=== PATIENT | male | born 1955 | race Caucasian/White ===

== ENCOUNTER 2017-03-05 19:19 | Emergency (ER) | payer OTHER ==
--- NOTE | 2017-03-05 21:39 | UC ---
UC General HPI - HPI Summary HPI Summary: patient is having intermittant stabbing pain behind the right ear. it is not occuring at this time. has been going on for a few weeks. Hx of tinnitus and vertigo, which does nota seem to be happening at this time. - History of Current Complaint Chief Complaint: UCSkin Stated Complaint: PAIN BEHIND R EAR Time Seen by Provider: 03/05/17 21:18 Hx Obtained From: Patient Onset/Duration: Sudden Onset, Lasting Days Timing: Intermittent Episodes Lasting: - seconds Onset Severity: Moderate Current Severity: Moderate - Allergy/Home Medications Allergies/Adverse Reactions: Allergies Allergy/AdvReac Type Severity Reaction Status Date / Time Penicillins Allergy Rash Verified 01/24/16 06:14 PMH/Surg Hx/FS Hx/Imm Hx Previously Healthy: Yes Cardiovascular History Of: Reports: Hypertension Psychological History Of: Reports: Depression - CONTROL WITH MEDS - Surgical History Surgical History: Yes Surgery Procedure, Year, and Place: 1977 REPAIR LACERATION RIGHT FOREARM, [facility]. 1996 BONE MARROW ASPIRATION, [facility]01/17 hip replacement - Family History Known Family History: Positive: Hypertension - Social History Alcohol Use: None Substance Use Type: None Smoking Status (MU): Former Smoker Type: Cigarettes Amount Used/How Often: 1 PPD FOR 17 YEARS Length of Time of Smoking/Using Tobacco: 17 YEARS Have You Smoked in the Last Year: No When Did the Patient Quit Smoking/Using Tobacco: 1987 - Immunization History Most Recent Influenza Vaccination: 2014 Most Recent Tetanus Shot: WITHIN 10 YEARS Most Recent Pneumonia Vaccination: NONE Review of Systems Constitutional: Negative Skin: Negative Eyes: Negative ENT: Negative Respiratory: Negative Cardiovascular: Negative Gastrointestinal: Negative Genitourinary: Negative Motor: Negative Neurovascular: Other - stabbing pain behind right ear Musculoskeletal: Negative Neurological: Negative Psychological: Negative All Other Systems Reviewed And Are Negative: Yes Physical Exam Triage Information Reviewed: Yes Appearance: Well-Appearing, Well-Nourished, Pain Distress Vital Signs: Initial Vital Signs Temp 98.0 F 03/05/17 20:49 Pulse 62 03/05/17 20:49 Resp 18 03/05/17 20:49 Pulse Ox 99 03/05/17 20:49 Vital Signs Reviewed: Yes Eye Exam: Normal Eyes: Positive: Conjunctiva Clear ENT Exam: Normal ENT: Positive: Hearing grossly normal, Pharynx normal, TMs normal Dental Exam: Normal Neck exam: Normal Neck: Positive: Supple, Nontender, No Lymphadenopathy Respiratory Exam: Normal Respiratory: Positive: Chest non-tender, Lungs clear, Normal breath sounds Cardiovascular Exam: Normal Cardiovascular: Positive: RRR, No Murmur, Pulses Normal Abdominal Exam: Normal Abdomen Description: Positive: Nontender, No Organomegaly, Soft Bowel Sounds: Positive: Present Musculoskeletal Exam: Normal Musculoskeletal: Positive: Strength Intact, ROM Intact, No Edema Neurological Exam: Normal Neurological: Positive: Other: - intermittant stabbing pain behind the right ear. happens for a second cannot reproduce the pain with movment or palpation. Psychological Exam: Normal Skin Exam: Normal Course/Dx - Course Course Of Treatment: hx obtained, exam performed, meds reviewed. patient refusing medication at this time. recommend heat to the area in case of tight muscles. Follow up with PCP. - Differential Dx - Multi-Symptom Provider Diagnoses: nerve pain Discharge - Discharge Plan Condition: Stable Disposition: HOME Patient Education Materials: Acoustic Neuroma (ED), Paresthesia (ED) Additional Instructions: I recommend you follow up with your physician if the pain continues.
== END 2017-03-05 21:46 | disposition home or self-care (01) ==
LOC: UCEAST 19:19
DX: H92.01 Otalgia, right ear (principal); I10 Essential (primary) hypertension; F32.9 Major depressive disorder, single episode, unspecified; Z96.649 Presence of unspecified artificial hip joint; Z88.0 Allergy status to penicillin; Z87.891 Personal history of nicotine dependence
CPT/HCPCS: 99211; G0463

== ENCOUNTER 2018-02-08 08:43 | Emergency (ER) | payer BC ==
--- NOTE | 2018-02-08 10:16 | UC ---
FLU HPI - HPI Summary HPI Summary: Patient to urgent care today with 4 days of fever and shortness of breath reports feeling like he did when he had pneumonia in the past with harsh cough - History of Current Complaint Chief Complaint: UCRespiratory Stated Complaint: FEVER Time Seen by Provider: 02/08/18 10:03 Hx Obtained From: Patient Hx From Patient Unobtainable Due To: Dementia Onset/Duration: Sudden Onset, Lasting Days - 4, Still Present Severity Currently: Moderate Severity Initially: Mild Pain Intensity: 6 Pain Scale Used: 0-10 Numeric Associated Signs & Symptoms: Positive: Fever, Myalgia, Cough - Allergy/Home Medications Allergies/Adverse Reactions: Allergies Allergy/AdvReac Type Severity Reaction Status Date / Time MS Penicillins [Penicillins] Allergy Intermediate Rash Verified 02/08/18 10:09 PMH/Surg Hx/FS Hx/Imm Hx Previously Healthy: No Endocrine History: Dyslipidemia Cardiovascular History: Hypertension Psychological History: Depression - Surgical History Surgical History: Yes Surgery Procedure, Year, and Place: 1977 REPAIR LACERATION RIGHT FOREARM, [facility]. 1996 BONE MARROW ASPIRATION, [facility]01/17 hip replacement - Family History Known Family History: Positive: Hypertension - Social History Occupation: Employed Part-time Lives: With Family Alcohol Use: None Substance Use Type: None Smoking Status (MU): Former Smoker Type: Cigarettes Amount Used/How Often: 1 PPD FOR 17 YEARS Length of Time of Smoking/Using Tobacco: 17 YEARS Have You Smoked in the Last Year: No When Did the Patient Quit Smoking/Using Tobacco: 1987 - Immunization History Most Recent Influenza Vaccination: 2014 Most Recent Tetanus Shot: WITHIN 10 YEARS Most Recent Pneumonia Vaccination: NONE Review of Systems Constitutional: Fever, Chills, Fatigue Skin: Negative Eyes: Negative ENT: Negative Respiratory: Shortness Of Breath, Cough Cardiovascular: Negative Gastrointestinal: Negative Genitourinary: Negative Motor: Negative Neurovascular: Negative Musculoskeletal: Arthralgia Neurological: Negative Psychological: Negative Is Patient Immunocompromised?: No All Other Systems Reviewed And Are Negative: Yes Physical Exam Triage Information Reviewed: Yes Appearance: No Pain Distress, Well-Nourished - Just should be personally with him and The follow, Ill-Appearing Vital Signs Reviewed: Yes Eye Exam: Normal Eyes: Positive: Conjunctiva Clear ENT Exam: Normal ENT: Positive: Normal ENT inspection, Hearing grossly normal, Pharynx normal, TMs normal - RL, Uvula midline. Negative: Tonsillar swelling, Trismus, Muffled voice, Hoarse voice, Dental tenderness, Sinus tenderness Dental Exam: Normal Neck exam: Normal Neck: Positive: Supple, Nontender Respiratory Exam: Normal Respiratory: Positive: Chest non-tender, No accessory muscle use, Respiratory distress - mild, Crackles, Wheezing Cardiovascular Exam: Normal Cardiovascular: Positive: RRR, No Murmur, Pulses Normal, Brisk Capillary Refill Musculoskeletal Exam: Normal Musculoskeletal: Positive: Strength Intact, ROM Intact, No Edema Neurological Exam: Normal Neurological: Positive: Alert, Muscle Tone Normal Psychological Exam: Normal Skin Exam: Normal Diagnostics - Radiology No standard instances Xray Interpretation: Positive (See Comments) - RLL Pneumonia Radiology Interpretation Completed By: ED Physician, Radiologist Re-Evaluation - Re-Evaluation First Eval Change: Unchanged - Sat 91 % at rest 88-89 % with conversation, lungs feel less congested with Albuterol, Second Eval Change: Improved - with Oxygen 95-96% on 3Liters@- Flu Course/Dx - Course Course Of Treatment: Transferred to the emergency department by ambulance O2 3 L nasal K no acute sets above 9394% IV report given to Dr. Beal at emergency department - Differential Dx/Diagnosis Provider Diagnoses: Pneumonia, Hypoxemia - Physician Notifications Discussed Patient Care With: Kael Beal Time Discussed With Above Provider: 11:30 Instructed by Provider To: Transfer Discharge - Discharge Plan Condition: Guarded Disposition: TRANS HIGHER LVL OF CARE FAC Referrals: Kael Bonilla MD [Primary Care Provider] -
[2018-02-08] MEDS ORDERED: Albuterol/Ipratropium NEB.SOL* Albuterol 2.5 MG/Ipratropium 0.5 MG 3 ML INH ONE (10:25)
[2018-02-08] MEDS ORDERED: Acetaminophen TAB* 325 MG PO ONE (10:25)
--- NOTE | 2018-02-08 10:47 | RAD ---
HISTORY: Cough, fevers, shortness of breath COMPARISONS: September 16, 2015 VIEWS: 4: Frontal dual-energy and lateral views of the chest. FINDINGS: CARDIOMEDIASTINAL SILHOUETTE: The cardiomediastinal silhouette is normal. SALVADOR: The salvador are normal. PLEURA: The costophrenic angles are sharp. No pleural abnormalities are noted. LUNG PARENCHYMA: There is confluent alveolar opacification of the right lower lobe. ABDOMEN: The upper abdomen is clear. There is no subphrenic gas. BONES AND SOFT TISSUES: No bone or soft tissue abnormalities are noted. OTHER: None. IMPRESSION: RIGHT LOWER LOBE CONSOLIDATION. RECOMMEND FOLLOW-UP UNTIL RESOLUTION TO EXCLUDE UNDERLYING PULMONARY PARENCHYMAL PATHOLOGY.
[2018-02-08 11:37] VITALS: BP 164/73
== END 2018-02-08 11:45 | disposition short-term general hospital (02) ==
LOC: UCEAST 08:43
DX: J18.9 Pneumonia, unspecified organism (principal); R09.02 Hypoxemia; E78.5 Hyperlipidemia, unspecified; I10 Essential (primary) hypertension; F32.9 Major depressive disorder, single episode, unspecified; Z96.649 Presence of unspecified artificial hip joint; Z88.0 Allergy status to penicillin; Z87.891 Personal history of nicotine dependence
CPT/HCPCS: 71046; 87502; 99213; A9270-GY; G0463

== ENCOUNTER 2018-02-08 12:01 | Inpatient (IN) | payer BC ==
[2018-02-08] MEDS ORDERED: NS 0.9% 1000 ML* 1,000 ML IV ONE (12:21)
[2018-02-08] MEDS ORDERED: Levofloxacin 750 MG IVPREMIX(* 750 MG/150 ML BAG IVPB ONE (12:23)
[2018-02-08] MEDS ORDERED: Albuterol/Ipratropium NEB.SOL* Albuterol 2.5 MG/Ipratropium 0.5 MG 3 ML INH ONE ×2 (12:23→14:32)
[2018-02-08 12:35] LABS: ABS Basophils 0 10^3/ul (0-0.2); ABS Eosinophils 0.1 10^3/ul (0-0.6); ABS Lymphocytes 0.8 10^3/ul (1.0-4.8); ABS Monocytes 0.8 10^3/ul (0-0.8); ABS Neutrophils 8.1 10^3/ul (1.5-7.7); ABS Nucleated RBC 0 10^3/ul; Eosinophil % 0.8 % (0-6); Hematocrit 38 % (42-52); Hemoglobin 13.2 g/dl (14.0-18.0); Lymphocyte % 8.4 % (25-47); Mean Corpuscular HGB Conc 35 g/dl (31-36); Mean Corpuscular Hemoglobin 29 pg (27-31); Mean Corpuscular Volume 84 fL (80-94); Mean Platelet Volume 8 um3 (7.4-10.4); Nucleated Red Blood Cells % 0.3; Platelet Count 156 10^3/ul (150-450); Red Blood Count 4.55 10^6/ul (4.0-5.4); Red Cell Distribution Width 14 % (10.5-15); White Blood Count 9.8 10^3/ul (3.5-10.8)
[2018-02-08 12:52] LABS: EGFR Non-African American 78.9 (>60)
--- NOTE | 2018-02-08 14:20 | ED ---
Anthony Jeter Gabriel, scribed for Kael Beal MD on 02/08/18 at 1213 . Shortness of Breath - HPI Summary HPI Summary: This patient is a 62 year old M BIBA from [facility] to [facility] after being diagnosed with right sided PNA. Patient reported productive cough, SOB, and LIM. Patient denies CP. Patient has been sick since 3-6-18. 93% O2 sat on room air. - History of Current Complaint Chief Complaint: EDShortnessOfBreath Hx Obtained From: Patient Onset/Duration: Lasting Days, Still Present Timing: Constant Current Severity: Moderate Dyspnea At: Exertion Associated Signs & Symptoms: Negative - CP, Cough (Productive) - Allergy/Home Medications Allergies/Adverse Reactions: Allergies Allergy/AdvReac Type Severity Reaction Status Date / Time MS Penicillins [Penicillins] Allergy Intermediate Rash Verified 02/08/18 12:10 Home Medications: Home Medications Pravastatin (NF) [Pravachol (NF)] 80 mg PO DAILY 02/08/18 [History Confirmed 09/18] Valsartan TAB* [Diovan TAB*] 320 mg PO DAILY 02/08/18 [History Confirmed ] PMH/Surg Hx/FS Hx/Imm Hx Endocrine/Hematology History: Denies: Hx Diabetes, Hx Thyroid Disease Cardiovascular History: Reports: Hx Hypertension, Other Cardiovascular Problems/ Disorders - CHOLESTEROL CONTROL WITH MED Respiratory History: Reports: Hx Sleep Apnea Denies: Hx Asthma, Hx Chronic Obstructive Pulmonary Disease (COPD) GI History: Denies: Hx Ulcer History: Reports: Other Problems/Disorders - HIGH PSA - TREATED WITH TAMSULOSIN Musculoskeletal History: Reports: Hx Arthritis - OSTEOARTHRITIS BILATERAL HIPS Sensory History: Reports: Hx Contacts or Glasses - READING GLASSES Denies: Hx Hearing Aid Opthamlomology History: Reports: Hx Contacts or Glasses - READING GLASSES Neurological History: Reports: Other Neuro Impairments/Disorders - POSITIONAL VERTIGO Psychiatric History: Reports: Hx Depression - CONTROL WITH MEDS - Surgical History Surgery Procedure, Year, and Place: 1977 REPAIR LACERATION RIGHT FOREARM, [facility]. 1996 BONE MARROW ASPIRATION, [facility]01/17 hip replacement Hx Anesthesia Reactions: No Infectious Disease History: Denies: Hx Hepatitis, Hx Human Immunodeficiency Virus (HIV) - Family History Known Family History: Positive: Hypertension - Social History Alcohol Use: None Substance Use Type: Reports: None Smoking Status (MU): Former Smoker Type: Cigarettes Amount Used/How Often: 1 PPD FOR 17 YEARS Length of Time of Smoking/Using Tobacco: 17 YEARS Have You Smoked in the Last Year: No Review of Systems Negative: Chest Pain Positive: Shortness Of Breath, Cough, Other - LIM All Other Systems Reviewed And Are Negative: Yes Physical Exam - Summary Physical Exam Summary: VITAL SIGNS: Reviewed. GENERAL: Patient is a well-developed and nourished male who is lying comfortable in the stretcher. Patient is not in any acute respiratory distress. HEAD AND FACE: No signs of trauma. No ecchymosis, hematomas or skull depressions. No sinus tenderness. EYES: PERRLA, EOMI x 2, No injected conjunctiva, no nystagmus. EARS: Hearing grossly intact. Ear canals and tympanic membranes are within normal limits. MOUTH: Oropharynx within normal limits. NECK: Supple, trachea is midline, no adenopathy, no JVD, no carotid bruit, no c- spine tenderness, neck with full ROM. CHEST: Symmetric, no tenderness at palpation LUNGS: right sided crackles, no wheezing CVS: Regular rate and rhythm, S1 and S2 present, no murmurs or gallops appreciated. ABDOMEN: Soft, non-tender. No signs of distention. No rebound no guarding, and no masses palpated. Bowel sounds are normal. EXTREMITIES: FROM in all major joints, no edema, no cyanosis or clubbing. NEURO: Alert and oriented x 3. No acute neurological deficits. Speech is normal and follows commands. SKIN: Dry and warm Triage Information Reviewed: Yes Vital Signs On Initial Exam: Initial Vitals Temp Pulse Resp BP Pulse Ox 99.8 F 74 20 175/82 91 02/08/18 12:10 02/08/18 12:10 02/08/18 12:10 02/08/18 12:10 02/08/18 12:10 Vital Signs Reviewed: Yes Diagnostics - Vital Signs Vital Signs Temp Pulse Resp BP Pulse Ox 02/08/18 12:10 99.8 F 74 20 175/82 91 - Laboratory Lab Results: Lab Results 02/08/18 02/08/18 02/08/18 Range/Units 11:35 11:35 11:35 WBC 9.8 (3.5-10.8) 10^3/ul RBC 4.55 (4.0-5.4) 10^6/ul Hgb 13.2 L (14.0-18.0) g/dl Hct 38 L (42-52) % MCV 84 (80-94) fL MCH 29 (27-31) pg MCHC 35 (31-36) g/dl RDW 14 (10.5-15) % Plt Count 156 (150-450) 10^3/ul MPV 8 (7.4-10.4) um3 Neut % (Auto) 81.9 (38-83) % Lymph % (Auto) 8.4 L (25-47) % Piute % (Auto) 8.5 H (0-7) % Eos % (Auto) 0.8 (0-6) % Baso % (Auto) 0.4 (0-2) % Absolute Neuts (auto) 8.1 H (1.5-7.7) 10^3/ul Absolute Lymphs (auto) 0.8 L (1.0-4.8) 10^3/ul Absolute Monos (auto) 0.8 (0-0.8) 10^3/ul Absolute Eos (auto) 0.1 (0-0.6) 10^3/ul Absolute Basos (auto) 0 (0-0.2) 10^3/ul Absolute Nucleated RBC 0 10^3/ul Nucleated RBC % 0.3 Sodium 132 L (133-145) mmol/L Potassium 3.9 (3.5-5.0) mmol/L Chloride 96 L (101-111) mmol/L Carbon Dioxide 30 (22-32) mmol/L Anion Gap 6 (2-11) mmol/L BUN 14 (6-24) mg/dL Creatinine 0.96 (0.67-1.17) mg/dL Est GFR ( Amer) 101.4 (>60) Est GFR (Non-Af Amer) 78.9 (>60) BUN/Creatinine Ratio 14.6 (8-20) Glucose 101 H (70-100) mg/dL Lactic Acid 1.1 (0.5-2.0) mmol/L Calcium 9.1 (8.6-10.3) mg/dL Total Bilirubin 1.90 H (0.2-1.0) mg/dL AST 27 (13-39) U/L ALT 30 (7-52) U/L Alkaline Phosphatase 59 (34-104) U/L Total Creatine Kinase 162 (10-223) U/L CK-MB (CK-2) 2.4 (0.6-6.3) ng/mL Troponin I 0.01 (<0.04) ng/mL C-Reactive Protein 226.28 H (< 5.00) mg/L B-Natriuretic Peptide ( - 100) pg/mL Total Protein 6.8 (6.4-8.9) g/dL Albumin 3.8 (3.2-5.2) g/dL Globulin 3.0 (2-4) g/dL Albumin/Globulin Ratio 1.3 (1-3) /09/18 Range/Units 11:35 WBC (3.5-10.8) 10^3/ul RBC (4.0-5.4) 10^6/ul Hgb (14.0-18.0) g/dl Hct (42-52) % MCV (80-94) fL MCH (27-31) pg MCHC (31-36) g/dl RDW (10.5-15) % Plt Count (150-450) 10^3/ul MPV (7.4-10.4) um3 Neut % (Auto) (38-83) % Lymph % (Auto) (25-47) % Piute % (Auto) (0-7) % Eos % (Auto) (0-6) % Baso % (Auto) (0-2) % Absolute Neuts (auto) (1.5-7.7) 10^3/ul Absolute Lymphs (auto) (1.0-4.8) 10^3/ul Absolute Monos (auto) (0-0.8) 10^3/ul Absolute Eos (auto) (0-0.6) 10^3/ul Absolute Basos (auto) (0-0.2) 10^3/ul Absolute Nucleated RBC 10^3/ul Nucleated RBC % Sodium (133-145) mmol/L Potassium (3.5-5.0) mmol/L Chloride (101-111) mmol/L Carbon Dioxide (22-32) mmol/L Anion Gap (2-11) mmol/L BUN (6-24) mg/dL Creatinine (0.67-1.17) mg/dL Est GFR ( Amer) (>60) Est GFR (Non-Af Amer) (>60) BUN/Creatinine Ratio (8-20) Glucose (70-100) mg/dL Lactic Acid (0.5-2.0) mmol/L Calcium (8.6-10.3) mg/dL Total Bilirubin (0.2-1.0) mg/dL AST (13-39) U/L ALT (7-52) U/L Alkaline Phosphatase (34-104) U/L Total Creatine Kinase (10-223) U/L CK-MB (CK-2) (0.6-6.3) ng/mL Troponin I (<0.04) ng/mL C-Reactive Protein (< 5.00) mg/L B-Natriuretic Peptide 490 H ( - 100) pg/mL Total Protein (6.4-8.9) g/dL Albumin (3.2-5.2) g/dL Globulin (2-4) g/dL Albumin/Globulin Ratio (1-3) Result Diagrams: 02/08/18 11:35 02/08/18 11:35 Lab Statement: Any lab studies that have been ordered have been reviewed, and results considered in the medical decision making process. - EKG 12:36 Cardiac Rate: NL EKG Rhythm: Sinus Rhythm - at 92 BPM EKG Interpretation: No ST elevations Course/Dx - Course Assessment/Plan: In the ED course an IV access was obtained. Patient was placed in a media monitor. Patient was started with IV fluids. Labs without any significant abnormality except for increased bilirubin, increased CRP 226, and increased BNP 490. Troponin #1: 0.01. EKG shows a NSR w/o ST elevations. CXR impression: positive for pneumonia. He was started in Levaquin. He was given Duonebs and IVF. Because he becomes hypoxic w/o Oxygen, I discuss my physical exam, findings and test results with Dr. Sanders from the hospitalist services and he agrees to admit patient to his services. Patient is hemodynamically stable alert and oriented x 3. - Diagnoses Differential Diagnosis/HQI/PQRI: Positive: Asthma, Bronchitis, CHF, Chest Wall Pain, Pneumonia Provider Diagnoses: Pneumonia, Hypoxia - Physician Notifications Discussed Care of Patient With: Florentino Sanders Time Discussed With Above Provider: 14:07 Instructed by Provider To: Admit As Inpatient Discharge - Discharge Plan Condition: Fair Disposition: ADMITTED TO [facility] Referrals: Kael Bonilla MD [Primary Care Provider] - The documentation as recorded by the Anthony montero Gabriel accurately reflects the service I personally performed and the decisions made by me, Kael Beal MD.
[2018-02-08] MEDS ORDERED: Albuterol/Ipratropium NEB.SOL* Albuterol 2.5 MG/Ipratropium 0.5 MG 3 ML ONE (14:28)
[2018-02-08] MEDS ORDERED: Furosemide IV* 10 MG/ML VIAL (40 MG) ONE (14:46)
[2018-02-08] MEDS ORDERED: Furosemide IV* 10 MG/ML 10 ML VIAL (100 MG) IV ONE (15:00)
[2018-02-08 15:24] LABS: Urine Appearance Clear; Urine Blood Negative (Negative); Urine Color Yellow; Urine Ketones Trace (Negative); Urine Protein 2+(100 mg/dL) (Negative); Urine Specific Gravity 1.018 (1.010-1.030); Urine Urobilinogen Negative (Negative)
[2018-02-08] MEDS ORDERED: Albuterol/Ipratropium NEB.SOL* Albuterol 2.5 MG/Ipratropium 0.5 MG 3 ML INH PRN (15:36)
[2018-02-08] MEDS ORDERED: hydrALAZINE IV* 20 MG/ML VIAL IV SLOW PU PRN (16:05)
[2018-02-08] MEDS: Acetaminophen TAB* 325 MG PO PRN ×2 (17:31→23:50)
[2018-02-08] MEDS: Enoxaparin(*) 40 MG/0.4 ML SYR SUBCUT SCH (17:55)
[2018-02-08] MEDS: Atorvastatin* 10 MG TAB PO SCH (17:56)
[2018-02-08] MEDS: Valsartan TAB* 160 MG PO SCH (17:56)
[2018-02-08] MEDS ORDERED: Iohexol 350* (CONTRAST) 500 ML MDV IV ONE (19:43)
[2018-02-08] MEDS: Benzocaine/Menthol LOZ* 1 LOZENGE MT PRN (19:49)
--- NOTE | 2018-02-08 20:08 | HP ---
HISTORY AND PHYSICAL: DATE OF ADMISSION: 02/08/18 ATTENDING PROVIDER: Florentino Sanders MD PRIMARY CARE PHYSICIAN: Kael Bonilla MD CHIEF COMPLAINT: Fevers, cough, shortness of breath. HISTORY OF PRESENT ILLNESS: Glenn De León is a 62-year-old male with past medical history of hypertension, BPH, elevated PSA, status post normal biopsy in 2014 of his prostate, obstructive sleep apnea on CPAP, left total hip replacement, depression, who for the last 5 days prior to admission has had fevers up to as high as 102, cough initially yellow green, then for the last 2 days reddish tinged and some clots, shortness of breath, and dyspnea on exertion. He had a chest x-ray at urgent care, which was concerning for right lower lobe pneumonia and was transferred [place] [facility]. He was initially satting 93% on room air at Urgent Care with fever of 100.9. In the emergency room here, he was started on 1 L normal saline and Levaquin 750 mg times once. He does have a history of mild rash as a child with penicillin. Blood pressures here 181/80 initially. He was requiring 3 L, satting in the mid 90s. He did desaturate and he got nebulizer treatments once at the urgent center and twice here after desaturations. He was noted to have rales on lung exam. He had an elevated BNP of 490 on labs. He is getting 60 of IV Lasix now , treatment for hypoxic respiratory failure in the setting of pneumonia and sepsis. He denies any headache. Has had a little bit of achy muscles. He was negative flu swab at an urgent care. He did get a flu vaccine in December. Denies any long travel or bed rest. 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 Denies any orthopnea. Does get short of breath with 1 flight of stairs, worse this week. He previously followed with food service order clerk in [place] many, many years ago as a prophylactic preventative measure given strong family history of strokes and heart disease. PAST MEDICAL HISTORY: Hypertension, BPH, depression, left total hip replacement , obstructive sleep apnea on CPAP. MEDICATIONS: Include: 1. Pravastatin 80 mg q. p.m. 2. Celexa 20 mg p.o. q. a.m. 3. Carvedilol 25 mg p.o. b.i.d. 4. Amlodipine 10 mg p.o. q. p.m. 5. Valsartan 320 mg p.o. daily. 6. Flomax (tamsulosin) 1 tab p.o. q.a.m. ALLERGIES: PENICILLIN (mild rash as a child, has tolerated amoxicillin since then). FAMILY HISTORY: Significant for cardiac disease in father and paternal uncles. Mother of COPD. Maternal aunts with strokes. 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 Medical surrogate is daughter Cara Patrick. He is a former smoker between ages of 16 and 33. Occasional cigar smoker since quit. Denies significant alcohol use. He is a full code. REVIEW OF SYSTEMS: A complete 14-point review of systems negative except as per HPI. PHYSICAL EXAMINATION GENERAL APPEARANCE: No acute distress. Getting a nebulizer treatment currently. VITAL SIGNS: Blood pressure 175/82. Satting initially 91% on room air. Currently requiring 15 L oxygen mask, sat in the mid 90s. Respiratory rate 20, temperature 99.8, pulse rate is 74. HEENT: Normocephalic, atraumatic. Pupils equal, round, and reactive to light. Extraocular motions intact. No sclerae icterus. NECK: Supple. No cervical lymphadenopathy. PULMONARY: Rales at bilateral bases. No wheezing or rhonchi appreciated. CARDIOVASCULAR: Regular rate and rhythm. No murmurs, rubs, or gallops. ABDOMEN: Soft, nontender. Slightly distended/obese. No rebound, no guarding. No Gallardo sign. EXTREMITIES: Warm, well perfused. No significant peripheral edema noted. SKIN: No lesions, no rashes. NEURO: Cranial nerves II through XII intact. Moving all extremities. DIAGNOSTIC STUDIES/LAB DATA: White count 9.8, hemoglobin 13.2, hematocrit 38, MCV 84, platelets 156, neutrophils 81.9. Sodium 132, potassium 3.9, chloride 96 , carbon dioxide 30, BUN 14, creatinine 0.96, glucose 101, lactic acid 1.1. Total bilirubin 1.90, AST 27, ALT 30, alk phos 59. Troponin 0.01. CRP 226.3. BNP 490. Albumin 3.8. Chest x-ray obtained at urgent care with right lower lobe consolidation. EKG with Q-waves in V1 and V2. No ST changes. Normal axis. QTc of 472, QRS of 97. Normal sinus rhythm. ASSESSMENT AND PLAN: Glenn De León is a 62-year-old male with past medical history of hypertension, benign prostatic hypertrophy, depression, presenting with 5 days of fevers, productive cough, shortness of breath, dyspnea on exertion, and x- ray concerning for right lower lobe pneumonia. He is status post Levaquin here in the emergency room. We will continue that to cover for community-acquire pneumonia and get a sputum culture. Follow up blood cultures. Procalcitonin was added. He has had worsening hypoxic respiratory failure after getting 1 L of fluid in the ED and BNP was already elevated at 490. Giving him 60 mg of IV Lasix now and getting an echocardiogram to assess his underlying systolic and diastolic valvular functions. Does have evidence of anterior Q-wave in V1, V2, but denies any history of myocardial infarction. Does get dyspneic walking up one flight of stairs. Adding on a D-dimer to already drawn labs and less likely a pulmonary embolism, but if he does not respond to the diuretics, low threshold to get a CT chest angiogram to rule out. He is negative flu swabs. He is hypertensive here, may have severe diastolic dysfunction. We will continue his Coreg 25 mg b.i.d. and valsartan 320 mg. We will hold his amlodipine for now, add back as we can. Give hydralazine p.r.n. for blood pressures above 180. Continue his pravastatin for hyperlipidemia or substitute for atorvastatin and continue his tamsulosin for benign prostatic hypertrophy. We are also getting strep pneumonia and legionella urine antigens and sputum cultures. He is being admitted to inpatient status for medical telemetry unit. For this hyponatremia, he is slowly volume overloaded on exam, may be related to that. Monitor BNP daily. Consider TSH, cortisol, urinalysis and urine sodium if not improved by tomorrow. He can eat a heart healthy diet. He is a full code and medical surrogate is Cara Patrick, his daughter and neurologist at [facility]. [id number]/[facility] #: [id number] LILLIE
--- NOTE | 2018-02-08 20:31 | RAD ---
HISTORY: Acute hypoxic respiratory failure COMPARISONS: None TECHNIQUE: Multiple contiguous axial CT scans of the chest were obtained after the administration of nonionic intravenous contrast, timed to the pulmonary arterial phase of contrast enhancement.. Coronal and sagittal multiplanar reformations are also submitted for review. FINDINGS: Evaluation is limited by suboptimal contrast opacification. Attenuation of the main pulmonary artery is less than 2020 Hounsfield units which is of diagnostic but borderline quality for the detection of pulmonary embolism.. NECK AND THYROID: The lower neck and thyroid are unremarkable. CHEST WALL: There is no lower cervical, axillary, or supraclavicular lymphadenopathy by size criteria. HEART AND PERICARDIUM: The heart is unremarkable. AORTA AND PULMONARY VASCULATURE: Evaluation of the suboptimal contrast opacification. Within the limitations of the study, there is no pulmonary arterial filling defect to suggest pulmonary was. MEDIASTINUM: There are subcentimeter short axis prevascular and paratracheal and AP window lymph nodes. There is no lymphadenopathy by size criteria. SALVADOR: There is no hilar lymphadenopathy by size criteria. AIRWAY AND ESOPHAGUS: The airway is unremarkable, without endobronchial filling defect. The esophagus is grossly normal. LUNG PARENCHYMA: Degenerative changes are noted of the spine PLEURA: There are trace bilateral pleural effusions. UPPER ABDOMEN: The upper abdomen is unremarkable. BONES AND SOFT TISSUES: No bone or soft tissue abnormalities are noted. OTHER: None. IMPRESSION: 1. NO PULMONARY ARTERIAL FILLING DEFECT TO SUGGEST PULMONARY EMBOLISM. 2. MULTIFOCAL CONSOLIDATION, PREDOMINANTLY WITHIN THE RIGHT LOWER LOBE. 3. THERE IS A 1 CM NODULE IN THE RIGHT MIDDLE LOBE. WHILE THIS MAY BE INFLAMMATORY OR INFECTIOUS GIVEN THE PRESENCE OF CONSOLIDATION ELSEWHERE, THE RECOMMENDATIONS FOR FOLLOWUP AND MANAGEMENT OF AN INCIDENTALLY DETECTED PULMONARY NODULE GREATER THAN 8 MM IN SIZE, IN A PATIENT WITHOUT A HISTORY OF MALIGNANCY, INCLUDE FOLLOWUP CT AT 3 MONTHS, PET-CT, AND/OR BIOPSY. NOTES: SIZE = AVERAGE LENGTH AND WIDTH; HIGH RISK IS DEFINED A HISTORY OF SMOKING OR OTHER KNOW RISK FACTORS FOR LUNG CANCER; LOW RISK IS DEFINED MINIMAL OR ABSENT HISTORY OF SMOKING OR OTHER KNOWN RISK FACTORS. Dara Mcfarland, RACHEL Sheikh, TEA Dominguez, et al (2017) "Guidelines for Management of Incidental Pulmonary Nodules Detected on CT Images: From the Fleischner Society 2017." Radiology; 284(1): 228-243. doi:10.1148/radiol.1173971979 1. .
[2018-02-08] MEDS ORDERED: Furosemide IV* 10 MG/ML VIAL (40 MG) IV ONE (21:00)
[2018-02-08] MEDS: Carvedilol TAB* 25 MG PO SCH (21:11)
[2018-02-08] MEDS: amLODIPine TAB* 5 MG PO SCH (21:11)
[2018-02-08] MEDS: guaiFENesin ER TAB 600 MG PO SCH (21:11)
[2018-02-08] MEDS ORDERED: diPHENhydraMINE PO* 25 MG PO ONE (23:55)
[2018-02-08] MEDS ORDERED: diPHENhydraMINE PO* 25 MG ONE (23:57)
[2018-02-09 05:43] LABS: ABS Basophils 0 10^3/ul (0-0.2); ABS Eosinophils 0 10^3/ul (0-0.6); ABS Monocytes 0.9 10^3/ul (0-0.8); ABS Neutrophils 7.9 10^3/ul (1.5-7.7); ABS Nucleated RBC 0 10^3/ul; Eosinophil % 0.4 % (0-6); Hematocrit 38 % (42-52); Hemoglobin 13.2 g/dl (14.0-18.0); Mean Corpuscular HGB Conc 35 g/dl (31-36); Mean Corpuscular Hemoglobin 29 pg (27-31); Mean Corpuscular Volume 83 fL (80-94); Mean Platelet Volume 7 um3 (7.4-10.4); Nucleated Red Blood Cells % 0; Platelet Count 156 10^3/ul (150-450); Red Blood Count 4.58 10^6/ul (4.0-5.4); Red Cell Distribution Width 14 % (10.5-15); White Blood Count 9.8 10^3/ul (3.5-10.8)
[2018-02-09 06:02] LABS: EGFR Non-African American 83.9 (>60)
[2018-02-09] MEDS ORDERED: Magnesium Sulfate 2 GM IV* 2 GM/50 ML BAG IVPB ONE (08:58)
[2018-02-09] MEDS ORDERED: Citalopram TAB* 20 MG PO SCH (09:00)
--- NOTE | 2018-02-09 09:30 | PN ---
Subjective Date of Service: 02/09/18 Interval History: CT angioram w/o e/o PE though somewhat limited 2/2 contrast bolus timing. multifocal pna worse in RLL. 10L [place] sating 93%. Still with productive cough, red tinged. Feeling better. BP better controlled. ECHO done this AM. net negative 1800 fevers, again 100.1 this AM. MRSA nares negative. Negative Urine Antigens. Sputum w/ 4+ GNB and 4+ GPC Objective Active Medications: Acetaminophen (Tylenol Tab*) 650 mg PO Q6H PRN PRN Reason: FEVER/PAIN Last Admin: 02/08/18 23:50 Dose: 650 mg Albuterol/Ipratropium (Duoneb (Albuterol 2.5 Mg/Ipratropium 0.5 Mg)) 1 neb INH Q4H PRN PRN Reason: SOB/WHEEZING Amlodipine Besylate (Norvasc Tab*) 10 mg PO QPM [facility] Last Admin: 02/08/18 21:11 Dose: 10 mg Atorvastatin Calcium (Lipitor*) 10 mg PO QPM [facility] PRN Reason: Protocol Last Admin: 02/08/18 17:56 Dose: 10 mg Azithromycin (Zithromax Tab*) 500 mg PO ONCE ONE Stop: 02/09/18 15:01 Azithromycin (Zithromax Tab*) 250 mg PO Q24H [facility] Stop: 02/14/18 14:59 Carvedilol (Coreg Tab*) 25 mg PO BID [facility] Last Admin: 02/08/18 21:11 Dose: 25 mg Enoxaparin Sodium (Lovenox(*)) 40 mg SUBCUT Q24H [facility] Last Admin: 02/08/18 17:55 Dose: 40 mg Guaifenesin (Mucinex*) 600 mg PO BID [facility] Last Admin: 02/08/18 21:11 Dose: 600 mg Hydralazine HCl (Apresoline Iv*) 10 mg IV SLOW PU Q2H PRN PRN Reason: SYSTOLIC BP GREATER THAN: Magnesium Sulfate (Magnesium Sulfate 2 Gm Iv*) 2 gm in 50 mls @ 50 mls/hr IVPB ONCE ONE Stop: 02/09/18 09:57 Ceftriaxone Sodium 1 gm/ (Sodium Chloride) 50 mls @ 200 mls/hr IVPB Q24H [facility] Potassium Chloride (Klor Con Er Tab*) 40 meq PO Q2H [facility] Stop: 02/09/18 11:01 Tamsulosin HCl (Flomax Cap*) 0.4 mg PO QAM [facility] Throat Lozenges (Chloraseptic Shira*) 1 shira MT Q6H PRN PRN Reason: SORE THROAT Last Admin: 02/08/18 19:49 Dose: 1 shira Valsartan (Diovan Tab*) 320 mg PO QPM [facility] Last Admin: 02/08/18 17:56 Dose: 320 mg Vital Signs - 8 hr 02/09/18 02/09/18 02/09/18 01:00 03:00 03:01 Temperature Pulse Rate 67 60 61 Respiratory 25 23 21 Rate Blood Pressure 141/62 146/65 (mmHg) O2 Sat by Pulse 90 88 90 Oximetry 02/09/18 02/09/18 02/09/18 03:29 04:00 05:00 Temperature 98.0 F Pulse Rate 60 60 Respiratory 23 21 23 Rate Blood Pressure 152/65 157/69 (mmHg) O2 Sat by Pulse 93 92 Oximetry 02/09/18 02/09/18 02/09/18 05:06 06:00 07:00 Temperature Pulse Rate 55 60 Respiratory 24 20 22 Rate Blood Pressure 159/80 152/74 (mmHg) O2 Sat by Pulse 92 94 Oximetry 02/09/18 02/09/18 02/09/18 07:37 08:00 08:13 Temperature 100.1 F Pulse Rate 70 67 Respiratory 15 Rate Blood Pressure 151/71 174/73 (mmHg) O2 Sat by Pulse 95 93 Oximetry Oxygen Devices in Use Now: High Flow Nasal Cannula Appearance: NAD Ears/Nose/Mouth/Throat: NL Teeth, Lips, Gums, Mucous Membranes Moist Respiratory: Symmetrical Chest Expansion and Respiratory Effort, - - velcro crackles right base and midlung. no wheezing. Cardiovascular: NL Sounds; No Murmurs; No JVD, RRR Abdominal: NL Sounds; No Tenderness; No Distention, No Hepatosplenomegaly Extremities: No Edema Skin: No Rash or Ulcers, No Nodules or Sclerosis Neurological: Alert and Oriented x 3, NL Sensation, NL Muscle Strength and Tone Nutrition: Taking PO's Result Diagrams: 02/09/18 05:23 02/09/18 05:23 Additional Lab and Data: Laboratory Results - last 24 hr 02/08/18 02/08/18 02/08/18 11:35 11:35 11:35 WBC 9.8 RBC 4.55 Hgb 13.2 L Hct 38 L MCV 84 MCH 29 MCHC 35 RDW 14 Plt Count 156 MPV 8 Neut % (Auto) 81.9 Lymph % (Auto) 8.4 L [place] % (Auto) 8.5 H Eos % (Auto) 0.8 Baso % (Auto) 0.4 Absolute Neuts (auto) 8.1 H Absolute Lymphs (auto) 0.8 L Absolute Monos (auto) 0.8 Absolute Eos (auto) 0.1 Absolute Basos (auto) 0 Absolute Nucleated RBC 0 Nucleated RBC % 0.3 D-Dimer, Quantitative Sodium 132 L Potassium 3.9 Chloride 96 L Carbon Dioxide 30 Anion Gap 6 BUN 14 Creatinine 0.96 Est GFR ( Amer) 101.4 Est GFR (Non-Af Amer) 78.9 BUN/Creatinine Ratio 14.6 Glucose 101 H Lactic Acid 1.1 Calcium 9.1 Magnesium Total Bilirubin 1.90 H AST 27 ALT 30 Alkaline Phosphatase 59 Total Creatine Kinase 162 CK-MB (CK-2) 2.4 Troponin I 0.01 C-Reactive Protein 226.28 H B-Natriuretic Peptide Total Protein 6.8 Albumin 3.8 Globulin 3.0 Albumin/Globulin Ratio 1.3 Procalcitonin Urine Color Urine Appearance Urine pH Ur Specific [place] Urine Protein Urine Ketones Urine Blood Urine Nitrate Urine Bilirubin Urine Urobilinogen Ur Leukocyte Esterase Urine WBC (Auto) Urine RBC (Auto) Urine Bacteria Urine Glucose 02/08/18 02/08/18 02/08/18 11:35 11:35 11:35 WBC RBC Hgb Hct MCV MCH MCHC RDW Plt Count MPV Neut % (Auto) Lymph % (Auto) [place] % (Auto) Eos % (Auto) Baso % (Auto) Absolute Neuts (auto) Absolute Lymphs (auto) Absolute Monos (auto) Absolute Eos (auto) Absolute Basos (auto) Absolute Nucleated RBC Nucleated RBC % D-Dimer, Quantitative 258 H Sodium Potassium Chloride Carbon Dioxide Anion Gap BUN Creatinine Est GFR ( Amer) Est GFR (Non-Af Amer) BUN/Creatinine Ratio Glucose Lactic Acid Calcium Magnesium Total Bilirubin AST ALT Alkaline Phosphatase Total Creatine Kinase CK-MB (CK-2) Troponin I C-Reactive Protein B-Natriuretic Peptide 490 H Total Protein Albumin Globulin Albumin/Globulin Ratio Procalcitonin 0.4 Urine Color Urine Appearance Urine pH Ur Specific [place] Urine Protein Urine Ketones Urine Blood Urine Nitrate Urine Bilirubin Urine Urobilinogen Ur Leukocyte Esterase Urine WBC (Auto) Urine RBC (Auto) Urine Bacteria Urine Glucose 02/08/18 02/09/18 02/09/18 15:09 05:23 05:23 WBC 9.8 RBC 4.58 Hgb 13.2 L Hct 38 L MCV 83 MCH 29 MCHC 35 RDW 14 Plt Count 156 MPV 7 L Neut % (Auto) 80.2 Lymph % (Auto) 10.0 L [place] % (Auto) 9.0 H Eos % (Auto) 0.4 Baso % (Auto) 0.4 Absolute Neuts (auto) 7.9 H Absolute Lymphs (auto) 1.0 Absolute Monos (auto) 0.9 H Absolute Eos (auto) 0 Absolute Basos (auto) 0 Absolute Nucleated RBC 0 Nucleated RBC % 0 D-Dimer, Quantitative Sodium 133 Potassium 3.1 L Chloride 95 L Carbon Dioxide 30 Anion Gap 8 BUN 13 Creatinine 0.91 Est GFR ( Amer) 107.9 Est GFR (Non-Af Amer) 83.9 BUN/Creatinine Ratio 14.3 Glucose 119 H Lactic Acid Calcium 8.5 L Magnesium 1.8 L Total Bilirubin AST ALT Alkaline Phosphatase Total Creatine Kinase CK-MB (CK-2) Troponin I C-Reactive Protein B-Natriuretic Peptide Total Protein Albumin Globulin Albumin/Globulin Ratio Procalcitonin Urine Color Yellow Urine Appearance Clear Urine pH 6.0 Ur Specific [place] 1.018 Urine Protein 2+(100 mg/dl) A Urine Ketones Trace A Urine Blood Negative Urine Nitrate Negative Urine Bilirubin Negative Urine Urobilinogen Negative Ur Leukocyte Esterase 1+ A Urine WBC (Auto) 3+(>20/hpf) A Urine RBC (Auto) Absent Urine Bacteria Absent Urine Glucose Negative Microbiology and Other Data: Microbiology 02/08/18 18:00 Sputum Expectorated Gram Stain - Final 02/08/18 18:30 Nasal Nasal Screen MRSA (PCR)(BILLY) - Final Mrsa Not Detected 02/08/18 18:30 Nasopharyngeal Influenza Types A,B Antigen (BILLY) - Final Specimen received for Influenza A/B Molecular testing 02/08/18 15:09 Urine Legionella Urinary Antigen - Final Negative Legionella 02/08/18 15:09 Urine Streptococcus pneumoniae Ag Screen - Final Negative S. pneumo Antigen Assess/Plan/Problems-Billing Assessment: 62 yo male PMH HTN, depression, BPH and elevated PSA s/p negative prostate biopsy 2014 p/w 5 days fevers, productive cough, SOB/LIM. Acute Hypoxic Respiratory Failure that got worse in ED after 1L bolus. b/l PNA worse RLL. BNP 490, ECHO pending. CT chest w/o e/o PE (modestly elevated) - Patient Problems (1) Acute respiratory failure with hypoxia Current Visit: Yes Status: Acute Code(s): J96.01 - ACUTE RESPIRATORY FAILURE WITH HYPOXIA SNOMED Code(s): 32842775 Comment: Required 10-15L oxymask in ED after got 1L NS. down to 10L salter. wean as tolerated. 2/2 pneumonia bilateral worse RLL and possible component of CHF. f/u ECHO. got diuresis with lasix twice yesterday. (2) Pneumonia Current Visit: Yes Status: Acute Code(s): J18.9 - PNEUMONIA, UNSPECIFIED ORGANISM SNOMED Code(s): 282198716 Comment: multifocal b/l but worse in RLL. s/p levaquin in ED. given continued fevers (though overall improving) will switch to ceftriaxone and azithromycin. monitor for drug rash (Did have mild rash as child to [facility] [place], has tolerated augmentin since). MRSA nares negative Strep Pna and Legionella Urine Ags negative f/u Sputum results. GNB and BPC 4+ each. f/u Bcx influenza swabs negative. (3) Depression Current Visit: No Status: Acute Code(s): F32.9 - MAJOR DEPRESSIVE DISORDER, SINGLE EPISODE, UNSPECIFIED SNOMED Code(s): 16224245 Comment: home celexa held (got levaquin and now planned azithromycin) for QTc interaction (4) BPH (benign prostatic hypertrophy) Current Visit: No Status: Chronic Code(s): N40.0 - BENIGN PROSTATIC HYPERPLASIA WITHOUT LOWER URINRY TRACT SYMP SNOMED Code(s): 512041417 Comment: Continue flomax. (5) Hypertension Current Visit: No Status: Chronic Code(s): I10 - ESSENTIAL (PRIMARY) HYPERTENSION SNOMED Code(s): 47496646 Comment: BP better controlled. Continue carvedilol, amlodipine and valsartan , hctz (6) CHF (congestive heart failure) Current Visit: Yes Status: Acute Code(s): I50.9 - HEART FAILURE, UNSPECIFIED SNOMED Code(s): 32897875 Comment: not previous diagnosis. BNP was 490. f/u ECHO. suspect component of diastolic dysfunction combined with his bad HTN. diuresis prn (got lasix twice yesterday). (7) DVT prophylaxis Current Visit: No Status: Acute Code(s): GES1047 - SNOMED Code(s): 686058165 Comment: Lovenox 40mg daily. SCDs. ambulate. (8) Full code status Current Visit: No Status: Acute Code(s): Z78.9 - OTHER SPECIFIED HEALTH STATUS SNOMED Code(s): 511259927 Status and Disposition: medicine inpatient. Can likely step down out of ICU later today.
[2018-02-09] MEDS ORDERED: cefTRIAXone(*) 1 GM in NS 0.9% 50 ML* 50 ML IVPB SCH (10:00)
[2018-02-09] MEDS: Carvedilol TAB* 25 MG PO SCH ×2 (10:03→20:53)
[2018-02-09] MEDS: Tamsulosin CAP* 0.4 MG PO SCH (10:03)
[2018-02-09] MEDS: Potassium Chlor TAB* 20 MEQ TAB.ER PO SCH ×2 (10:03→12:32)
[2018-02-09] MEDS: guaiFENesin ER TAB 600 MG PO SCH ×2 (10:03→20:53)
--- NOTE | 2018-02-09 10:39 | ECHO ---
Patient: JOSE DE JESUS CLAROS 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 The study is technically limited due to patient body habitus. The study is technically limited due to the patient's smoking history. Completed at 0825. Left Ventricle: The left ventricular chamber size is normal. Mild concentric left ventricular hypertrophy is observed. There is increased basal septal hypertrophy noted without evidence of an increased gradient across the left ventricular outflow tract. Global left ventricular wall motion and contractility are within normal limits. There is normal left ventricular systolic function. The estimated ejection fraction is 55-60%. Abnormal left ventricular diastolic filling is observed, consistent with impaired relaxation. Left Atrium: The left atrium is mildly dilated. Right Ventricle: The right ventricular cavity size is normal. The right ventricular global systolic function is normal. Right Atrium: The right atrium is mildly dilated. Aortic Valve: The aortic valve is trileaflet. The aortic valve leaflets are mildly thickened. There is aortic annular calcification. There is a trace of aortic regurgitation. There is no evidence of aortic stenosis. Mitral Valve: The mitral valve leaflets are mildly thickened. There is mild mitral regurgitation. There is no evidence of mitral stenosis. Tricuspid Valve: The tricuspid valve leaflets are normal. There is trace to mild tricuspid regurgitation. Unable to estimate the right ventricular systolic pressure. There is no tricuspid stenosis. Pulmonic Valve: The pulmonic valve appears normal. There is trace to mild pulmonic regurgitation. There is no pulmonic stenosis. Pericardium: There is no significant pericardial effusion. A pericardial fat pad is visualized. Aorta: There is no dilatation of the ascending aorta. The aortic arch is not well visualized. There is no dilation of the aortic root. Pulmonary Artery: The main pulmonary artery is not well visualized. Venous: The inferior vena cava appears normal in size. There is a greater than 50% respiratory change in the inferior vena cava dimension. Summary: There was not any prior study for comparison. Conclusions Global left ventricular wall motion and contractility are within normal limits. There is normal left ventricular systolic function. There is increased basal septal hypertrophy noted without evidence of an increased gradient across the left ventricular outflow tract. The estimated ejection fraction is 55-60%. The right ventricular global systolic function is normal. There is a trace of aortic regurgitation. There is mild mitral regurgitation. There is trace to mild tricuspid regurgitation. Unable to estimate the right ventricular systolic pressure. There is no significant pericardial effusion. Measurements Name Value Normal Range RVDdMajor (2D) 4 cm (2.2 - 4.4) RAd ISD 4CH 5.5 cm (3.4 - 4.9) RA (A4C)W 4.4 cm (2.9 - 4.6) IVSd (2D) 1.2 cm (0.6 - 1) LVPWd (2D) 1.2 cm (0.6 - 1) LVIDd (2D) 5.3 cm (3.6 - 5.4) LVIDs (2D) 3.7 cm - LV FS (2D) 30 % (25 - 45) Aortic Annulus 2.3 cm (1.4 - 2.6) Ao root diameter (2D) 3.2 cm (2.1 - 3.5) Ascending Ao 3 cm (2.1 - 3.4) LA dimension (AP) 2D 4.5 cm (2.3 - 3.8) LAd ISD 4CH 5.5 cm (2.9 - 5.3) LA ISD 4CH W 5 cm (2.5 - 4.5) Name Value Normal Range LA ESV SP 4CH (A/L) 94 ml - LA ESV SP 2CH (A/L) 88 ml - LA ESV BP (A/L) 92 ml - LA ESV BP (A/L) index 42.2 ml/m2 - LA ESV SP 4CH (MOD) 87 ml - LA ESV SP 2CH (MOD) 84 ml - Name Value Normal Range MV E-wave Vmax 1.2 m/sec - MV deceleration time 190 msec - MV A-wave Vmax 0.63 m/sec - MV E:A ratio 1.9 ratio - LV septal e' Vmax 0.07 m/sec - LV lateral e' Vmax 0.09 m/sec - LV E:e' septal ratio 17.1 ratio - LV E:e' lateral ratio 13.3 ratio - Name Value Normal Range AV Vmax 1.4 m/sec - AV VTI 32.7 cm - AV peak gradient 8 mmHg - AV mean gradient 5 mmHg - LVOT Vmax 1.2 m/sec - LVOT VTI 28.1 cm - LVOT peak gradient 5 mmHg - LVOT mean gradient 3.7 mmHg - Name Value Normal Range MV Vmax 1.4 m/sec - MV VTI 32.7 cm - MV peak gradient 7.5 mmHg - MV mean gradient 2.3 mmHg - MV PHT 84 msec - MVA (PHT) 2.6 cm2 - Name Value Normal Range IVC diameter 2 cm - Name Value Normal Range PV Vmax 1 m/sec -
[2018-02-09] MEDS ORDERED: NS 0.9% 50 ML* 50 ML ONE (10:56)
[2018-02-09] MEDS ORDERED: Furosemide IV* 10 MG/ML 10 ML VIAL (100 MG) IV ONE ×3 (11:45→18:16)
[2018-02-09] MEDS: cefTRIAXone(*) 1 GM in NS 0.9% 50 ML* 50 ML IVPB SCH (13:21)
[2018-02-09] MEDS: CMC:Pantoprazole TAB (NF) 40 MG TAB PO SCH (14:39)
[2018-02-09] MEDS ORDERED: Azithromycin TAB* 250 MG PO ONE (15:00)
[2018-02-09] MEDS: Acetaminophen TAB* 325 MG PO PRN (15:43)
[2018-02-09] MEDS ORDERED: Levofloxacin 750 MG IVPREMIX(* 750 MG/150 ML BAG IVPB SCH (16:00)
[2018-02-09] MEDS: amLODIPine TAB* 5 MG PO SCH (17:21)
[2018-02-09] MEDS: Valsartan TAB* 160 MG PO SCH (17:21)
[2018-02-09] MEDS: Atorvastatin* 10 MG TAB PO SCH (17:21)
[2018-02-09] MEDS: Enoxaparin(*) 40 MG/0.4 ML SYR SUBCUT SCH (17:21)
[2018-02-10] MEDS: Acetaminophen TAB* 325 MG PO PRN (00:02)
[2018-02-10 05:49] LABS: ABS Basophils 0 10^3/ul (0-0.2); ABS Eosinophils 0.1 10^3/ul (0-0.6); ABS Monocytes 0.7 10^3/ul (0-0.8); ABS Neutrophils 5.1 10^3/ul (1.5-7.7); ABS Nucleated RBC 0 10^3/ul; Eosinophil % 1.3 % (0-6); Hematocrit 36 % (42-52); Hemoglobin 12.7 g/dl (14.0-18.0); Lymphocyte % 14.2 % (25-47); Mean Corpuscular HGB Conc 35 g/dl (31-36); Mean Corpuscular Hemoglobin 29 pg (27-31); Mean Corpuscular Volume 83 fL (80-94); Mean Platelet Volume 8 um3 (7.4-10.4); Nucleated Red Blood Cells % 0.1; Platelet Count 169 10^3/ul (150-450); Red Blood Count 4.41 10^6/ul (4.0-5.4); Red Cell Distribution Width 14 % (10.5-15); White Blood Count 6.8 10^3/ul (3.5-10.8)
[2018-02-10 05:58] LABS: EGFR Non-African American 75.2 (>60)
[2018-02-10] MEDS: Carvedilol TAB* 25 MG PO SCH ×2 (10:33→20:53)
[2018-02-10] MEDS: guaiFENesin ER TAB 600 MG PO SCH ×2 (10:34→20:53)
[2018-02-10] MEDS: Tamsulosin CAP* 0.4 MG PO SCH (10:34)
[2018-02-10] MEDS: CMC:Pantoprazole TAB (NF) 40 MG TAB PO SCH (10:34)
[2018-02-10] MEDS: Potassium Chlor TAB* 20 MEQ TAB.ER PO SCH ×2 (10:34→12:46)
[2018-02-10] MEDS: cefTRIAXone(*) 1 GM in NS 0.9% 50 ML* 50 ML IVPB SCH (12:45)
[2018-02-10] MEDS ORDERED: Azithromycin TAB* 250 MG PO SCH (15:00)
--- NOTE | 2018-02-10 15:51 | PN ---
Subjective Date of Service: 02/10/18 Interval History: able to ambulate on RA, Sat'in 90-93% Feeling much better sputum culture with normal kamini. afebrile coughing still. Objective Active Medications: Acetaminophen (Tylenol Tab*) 650 mg PO Q6H PRN PRN Reason: FEVER/PAIN Last Admin: 02/10/18 00:02 Dose: 650 mg Albuterol/Ipratropium (Duoneb (Albuterol 2.5 Mg/Ipratropium 0.5 Mg)) 1 neb INH Q4H PRN PRN Reason: SOB/WHEEZING Amlodipine Besylate (Norvasc Tab*) 10 mg PO QPM [facility] Last Admin: 02/09/18 17:21 Dose: 10 mg Atorvastatin Calcium (Lipitor*) 10 mg PO QPM [facility] PRN Reason: Protocol Last Admin: 02/09/18 17:21 Dose: 10 mg Azithromycin (Zithromax Tab*) 250 mg PO Q24H [facility] Stop: 02/14/18 14:59 Last Admin: 02/10/18 14:34 Dose: 250 mg Carvedilol (Coreg Tab*) 25 mg PO BID [facility] Last Admin: 02/10/18 10:33 Dose: 25 mg Enoxaparin Sodium (Lovenox(*)) 40 mg SUBCUT Q24H [facility] Last Admin: 02/09/18 17:21 Dose: 40 mg Furosemide (Lasix Tab*) 20 mg PO DAILY [facility] Guaifenesin (Mucinex*) 600 mg PO BID [facility] Last Admin: 02/10/18 10:34 Dose: 600 mg Hydralazine HCl (Apresoline Iv*) 10 mg IV SLOW PU Q2H PRN PRN Reason: SYSTOLIC BP GREATER THAN: Ceftriaxone Sodium 1 gm/ (Sodium Chloride) 50 mls @ 200 mls/hr IVPB Q24HR@1300 [facility] Last Admin: 02/10/18 12:45 Dose: 200 mls/hr Pantoprazole Sodium (Protonix Tab (Nf)) 40 mg PO DAILY [facility] Last Admin: 02/10/18 10:34 Dose: Not Given Tamsulosin HCl (Flomax Cap*) 0.4 mg PO QAM [facility] Last Admin: 02/10/18 10:34 Dose: 0.4 mg Throat Lozenges (Chloraseptic Shira*) 1 shira MT Q6H PRN PRN Reason: SORE THROAT Last Admin: 02/08/18 19:49 Dose: 1 shira Valsartan (Diovan Tab*) 320 mg PO QPM [facility] Last Admin: 02/09/18 17:21 Dose: 320 mg Vital Signs - 8 hr 02/10/18 02/10/18 08:00 11:18 Temperature 99.0 F Pulse Rate 66 Respiratory 20 20 Rate Blood Pressure 167/65 (mmHg) O2 Sat by Pulse 93 Oximetry Oxygen Devices in Use Now: None Appearance: NAD, resting in bed. Ears/Nose/Mouth/Throat: NL Teeth, Lips, Gums, Mucous Membranes Moist Neck: NL Appearance and Movements; NL JVP Respiratory: - - slight rhonchi right lower lobe, overall improved. no wheezing. less coughing Cardiovascular: NL Sounds; No Murmurs; No JVD, RRR, No Edema Extremities: No Edema Skin: No Rash or Ulcers Neurological: Alert and Oriented x 3, NL Sensation, NL Muscle Strength and Tone Nutrition: Taking PO's Result Diagrams: 02/10/18 05:08 02/10/18 05:08 Additional Lab and Data: Laboratory Results - last 24 hr 02/10/18 02/10/18 05:08 05:08 WBC 6.8 RBC 4.41 Hgb 12.7 L Hct 36 L MCV 83 MCH 29 MCHC 35 RDW 14 Plt Count 169 MPV 8 Neut % (Auto) 74.7 Lymph % (Auto) 14.2 L [place] % (Auto) 9.5 H Eos % (Auto) 1.3 Baso % (Auto) 0.3 Absolute Neuts (auto) 5.1 Absolute Lymphs (auto) 1.0 Absolute Monos (auto) 0.7 Absolute Eos (auto) 0.1 Absolute Basos (auto) 0 Absolute Nucleated RBC 0 Nucleated RBC % 0.1 ESR 48 H Sodium 134 Potassium 3.3 L Chloride 95 L Carbon Dioxide 32 Anion Gap 7 BUN 20 Creatinine 1.00 Est GFR ( Amer) 96.7 Est GFR (Non-Af Amer) 75.2 BUN/Creatinine Ratio 20.0 Glucose 102 H Calcium 8.9 Magnesium 2.2 Microbiology and Other Data: Microbiology 02/08/18 15:35 Blood Venous Aerobic Blood Culture - Preliminary No Growth Day 2 02/08/18 15:35 Blood Venous Anaerobic Blood Culture - Preliminary No Growth Day 2 02/08/18 14:05 Blood Venous Aerobic Blood Culture - Preliminary No Growth Day 2 02/08/18 14:05 Blood Venous Anaerobic Blood Culture - Preliminary No Growth Day 2 02/08/18 18:00 Sputum Expectorated Gram Stain - Final 02/08/18 18:00 Sputum Expectorated Sputum Culture - Final Normal Kamini 02/08/18 15:09 Urine Urine Culture - Final No Growth (<1,000 CFU/mL) 02/08/18 18:30 Nasal Nasal Screen MRSA (PCR)(BILLY) - Final Mrsa Not Detected 02/08/18 18:30 Nasopharyngeal Influenza Types A,B Antigen (BILLY) - Final Specimen received for Influenza A/B Molecular testing 02/08/18 15:09 Urine Legionella Urinary Antigen - Final Negative Legionella 02/08/18 15:09 Urine Streptococcus pneumoniae Ag Screen - Final Negative S. pneumo Antigen Assess/Plan/Problems-Billing Assessment: 62 yo male PMH HTN, depression, BPH and elevated PSA s/p negative prostate biopsy 2014 p/w 5 days fevers, productive cough, SOB/LIM. Acute Hypoxic Respiratory Failure that got worse in ED after 1L bolus. b/l PNA worse RLL. BNP 490, ECHO w/ diastolic dysfunction. CT chest w/o e/o PE (modestly elevated) . Improving on ceftriaxone/azithrymycin. initially levaquin. - Patient Problems (1) Acute respiratory failure with hypoxia Current Visit: Yes Status: Acute Code(s): J96.01 - ACUTE RESPIRATORY FAILURE WITH HYPOXIA SNOMED Code(s): 23133487 Comment: Improving. now room Air. 2/2 pneumonia bilateral worse RLL and diastolic CHF. reduce lasix to 20mg po daily. (2) Pneumonia Current Visit: Yes Status: Acute Code(s): J18.9 - PNEUMONIA, UNSPECIFIED ORGANISM SNOMED Code(s): 370632105 Comment: multifocal b/l but worse in RLL. s/p levaquin in ED. now ceftriaxone and azithromycin. Day 3 of abx MRSA nares negative Strep Pna and Legionella Urine Ags negative f/u Sputum results. GNB and BPC 4+ each.-> normal kamini Bcx NGTD influenza swabs negative. (3) Depression Current Visit: No Status: Acute Code(s): F32.9 - MAJOR DEPRESSIVE DISORDER, SINGLE EPISODE, UNSPECIFIED SNOMED Code(s): 83056134 Comment: home celexa held (got levaquin and now planned azithromycin) for QTc interaction (4) BPH (benign prostatic hypertrophy) Current Visit: No Status: Chronic Code(s): N40.0 - BENIGN PROSTATIC HYPERPLASIA WITHOUT LOWER URINRY TRACT SYMP SNOMED Code(s): 887680624 Comment: Continue flomax. (5) Hypertension Current Visit: No Status: Chronic Code(s): I10 - ESSENTIAL (PRIMARY) HYPERTENSION SNOMED Code(s): 25809133 Comment: BP better controlled. Continue carvedilol, amlodipine and valsartan , hctz (6) CHF (congestive heart failure) Current Visit: Yes Status: Acute Code(s): I50.9 - HEART FAILURE, UNSPECIFIED SNOMED Code(s): 74799029 Comment: not previous diagnosis. BNP was 490. ECHO with diastolic dysfunction. reduce lasix to 20mg po daily. (7) DVT prophylaxis Current Visit: No Status: Acute Code(s): PMM8946 - SNOMED Code(s): 922424149 Comment: Lovenox 40mg daily. SCDs. ambulate. (8) Full code status Current Visit: No Status: Acute Code(s): Z78.9 - OTHER SPECIFIED HEALTH STATUS SNOMED Code(s): 840373062 Status and Disposition: medicine inpatient. Likely discharge 02/11
[2018-02-10] MEDS: amLODIPine TAB* 5 MG PO SCH (17:48)
[2018-02-10] MEDS: Enoxaparin(*) 40 MG/0.4 ML SYR SUBCUT SCH (17:48)
[2018-02-10] MEDS: Valsartan TAB* 160 MG PO SCH (17:49)
[2018-02-10] MEDS: Furosemide TAB* 20 MG PO SCH (17:49)
[2018-02-10] MEDS: Atorvastatin* 10 MG TAB PO SCH (17:49)
[2018-02-10] MEDS: Artificial Tears* 15 ML BTL BOTH EYES PRN (19:41)
[2018-02-10] MEDS: Benzocaine/Menthol LOZ* 1 LOZENGE MT PRN (23:12)
[2018-02-11 05:57] LABS: ABS Basophils 0 10^3/ul (0-0.2); ABS Eosinophils 0.1 10^3/ul (0-0.6); ABS Monocytes 0.5 10^3/ul (0-0.8); ABS Neutrophils 3.8 10^3/ul (1.5-7.7); ABS Nucleated RBC 0 10^3/ul; Eosinophil % 2.7 % (0-6); Hematocrit 36 % (42-52); Hemoglobin 12.8 g/dl (14.0-18.0); Lymphocyte % 18.1 % (25-47); Mean Corpuscular HGB Conc 36 g/dl (31-36); Mean Corpuscular Hemoglobin 29 pg (27-31); Mean Corpuscular Volume 83 fL (80-94); Mean Platelet Volume 7 um3 (7.4-10.4); Nucleated Red Blood Cells % 0.1; Platelet Count 211 10^3/ul (150-450); Red Blood Count 4.37 10^6/ul (4.0-5.4); Red Cell Distribution Width 14 % (10.5-15); White Blood Count 5.5 10^3/ul (3.5-10.8)
[2018-02-11 06:10] LABS: EGFR Non-African American 90.7 (>60)
[2018-02-11 07:50] VITALS: BP 151/71
[2018-02-11] MEDS: Furosemide TAB* 20 MG PO SCH (08:04)
[2018-02-11] MEDS: guaiFENesin ER TAB 600 MG PO SCH (08:04)
[2018-02-11] MEDS: Carvedilol TAB* 25 MG PO SCH (08:04)
[2018-02-11] MEDS: Tamsulosin CAP* 0.4 MG PO SCH (08:04)
[2018-02-11] MEDS: Benzocaine/Menthol LOZ* 1 LOZENGE MT PRN (08:05)
[2018-02-11] MEDS: Artificial Tears* 15 ML BTL BOTH EYES PRN (08:05)
[2018-02-11] MEDS: CMC:Pantoprazole TAB (NF) 40 MG TAB PO SCH (08:05)
[2018-02-11] MEDS ORDERED: Potassium Chlor TAB* 20 MEQ TAB.ER PO ONE (09:56)
--- NOTE | 2018-02-12 03:37 | DS ---
DISCHARGE SUMMARY: DATE OF ADMISSION: 02/08/18 DATE OF DISCHARGE: 02/11/18 ADMITTING AND ATTENDING PHYSICIAN: Florentino Sanders MD PRIMARY CARE PHYSICIAN: Kael Bonilla MD CHIEF COMPLAINT: Fever, cough, shortness of breath. PRINCIPAL DIAGNOSES: Community-acquired pneumonia and diastolic dysfunction. HISTORY OF PRESENT ILLNESS AND HOSPITAL COURSE: Glenn De León is a 62-year- old male with past medical history of hypertension; BPH; elevated PSA, status post normal prostate biopsy in 2015; obstructive sleep apnea, on CPAP; left total hip replacement; depression, who 5 days prior to admission presented with fevers as high as 102, productive cough of yellow green sputum transitioning to reddish tinged with clots, shortness of breath, dyspnea on exertion. The chest x-ray at Urgent Care was concerning for right lower lobe pneumonia and transferred [place] [facility]. He got a 1 L of fluid bolus in the emergency room and his oxygen requirement seemed to increase and was requiring 10 to 15 L of OxyMask whereas he had been satting 92% on room air at Urgent Care. He was treated with Levaquin in the emergency room and referred to hospitalist service for admission for pneumonia and acute hypoxic respiratory failure. He was admitted to the intensive care unit overnight given the degree of oxygen requirements. His labs were notable for BNP of 490. He was given 60 of IV Lasix. He had no reported history of CHF, though he does have notably hypertension, on multiple agents including carvedilol, amlodipine and valsartan and his initial blood pressure were in the 180s/80s. He had an echocardiogram, which showed preserved ejection fraction and good valvular function, but evidence of diastolic dysfunction. The patient, who has a reported history of PENICILLIN allergy, mild rash as a child, was switched to ceftriaxone and azithromycin on hospital day 2 given continued fevers. He was downgraded to the medicine floor, given continued diuresis with IV Lasix and his weights on admission were 100.3 kg, on discharge 97.3 kg. By hospital day #3, he was on room air in the afternoon. His sputum culture grew normal kamini, MRSA nares were negative. He had negative Strep pneumoniae and Legionella urine antigen testing. His blood cultures were negative x2 days. He never had a leukocytosis. His CRP was 226. He is being discharged on additional 5 days of Levaquin. His Celexa was held while he was getting QTc prolonging agents. He is being referred to follow up with Cardiology given new diagnosis of diastolic dysfunction and new Lasix 20 mg p.o. every other day with potassium supplementation. DISCHARGE MEDICATIONS: Include: 1. Amlodipine 10 mg daily. 2. Carvedilol 25 mg p.o. b.i.d. 3. Pravastatin 80 mg daily. 4. Tamsulosin 0.4 mg tab p.o. q.a.m. 5. Valsartan 320 mg p.o. daily. 6. Celexa 20 mg p.o. q.a.m. (to be held for the next 5 days while on Levaquin) 7. Lasix 20 mg p.o. every other day (new) 8. Levaquin 750 mg p.o. daily for 5 days (new) 9. Potassium chloride 10 mEq p.o. every other day (new) DISCHARGE DIET: Heart healthy. ACTIVITY LEVEL: No restrictions. FOLLOWUP: Please follow up with Dr. Kael Bonilla within 3 to 5 days of discharge and Dr. Sofiya Bermudez or another internet security specialist locally within 1 to 2 weeks. TIME SPENT ON DISCHARGE: 35 minutes. [id number]/[facility] #: [id number] [id number]
[2018-02-12] MEDS ORDERED: cefTRIAXone 1000 MG SYRINGE IVPB Q24H IVPB SCH ×2 (13:00)
== END 2018-02-11 12:52 | disposition home or self-care (01) | DRG 720 ==
LOC: ED 12:01 → ICU 14:38 → MEDTELE 02-09 14:30
PROVIDERS: ADMIT Internal Medicine; ATTEND Internal Medicine
DX: A41.9 Sepsis, unspecified organism (principal); J18.9 Pneumonia, unspecified organism; J96.01 Acute respiratory failure with hypoxia; I50.31 Acute diastolic (congestive) heart failure; I11.0 Hypertensive heart disease with heart failure; N40.0 Benign prostatic hyperplasia without lower urinary tract symptoms; F32.9 Major depressive disorder, single episode, unspecified; G47.33 Obstructive sleep apnea (adult) (pediatric); Z96.642 Presence of left artificial hip joint; Z79.899 Other long term (current) drug therapy; Z88.0 Allergy status to penicillin; Z82.49 Family history of ischemic heart disease and other diseases of the circulatory system; Z82.5 Family history of asthma and other chronic lower respiratory diseases; Z82.3 Family history of stroke; Z87.891 Personal history of nicotine dependence
CPT/HCPCS: 36415; 71275; 80048; 80053; 81003; 81015; 82550; 82553; 83605; 83735; 83880; 84145; 84484; 85025; 85379; 85652; 86140; 87040; 87070; 87086; 87205; 87641; 87899; 93005; 93306; 94660; 94760; 99285; A9270-GY; J0696; J1650; J1940; J3475; Q9967

== ENCOUNTER 2018-04-26 07:21 | Emergency (ER) | payer BC ==
[2018-04-26 07:40] VITALS: BP 173/79
--- NOTE | 2018-04-26 07:58 | UC ---
Respiratory Complaint HPI - HPI Summary HPI Summary: 62 yo male with three day hx of cought productive at times no f/c no SALDIVAR or myalgias was admitted to hospital 2-3 months ago for 4 days due to pneumonia no CP or SOB - History of Current Complaint Chief Complaint: UCRespiratory Stated Complaint: COUGH AND CHEST CONGESTION Time Seen by Provider: 04/26/18 07:58 Hx Obtained From: Patient Onset/Duration: Sudden Onset, Lasting Days Timing: Constant Severity Initially: Mild Severity Currently: Moderate Pain Intensity: 0 Pain Scale Used: 0-10 Numeric Character: Cough: Productive Aggravating Factors: Deep Breaths Alleviating Factors: Nothing Associated Signs And Symptoms: Positive: Nasal Congestion - Allergies/Home Medications Allergies/Adverse Reactions: Allergies Allergy/AdvReac Type Severity Reaction Status Date / Time Penicillins Allergy Rash Verified 04/26/18 07:40 Home Medications: Home Medications Acetaminophen TAB* [Tylenol TAB*] 325 mg PO Q4H PRN 04/26/18 [History Confirmed 04/26/18] Aspirin EC TAB* [Ecotrin EC Low Dose 81 MG*] 81 mg PO DAILY 04/26/18 [History Confirmed 04/26/18] Fluticasone NASAL SPRAY 50MCG* [Flonase NASAL SPRAY 50MCG*] 2 spray BOTH NARES DAILY 04/26/18 [History Confirmed 04/26/18] Spironolactone TAB* [Aldactone TAB*] 25 mg PO DAILY 04/26/18 [History Confirmed 04/26/18] PMH/Surg Hx/FS Hx/Imm Hx Previously Healthy: Yes Endocrine History: Dyslipidemia Cardiovascular History: Hypertension Respiratory History: Pneumonia - Surgical History Surgical History: Yes Surgery Procedure, Year, and Place: 1977 REPAIR LACERATION RIGHT FOREARM, [facility]. 1996 BONE MARROW ASPIRATION, [facility]01/17 hip replacement - Family History Known Family History: Positive: Hypertension - Social History Alcohol Use: None Substance Use Type: None Smoking Status (MU): Former Smoker Type: Cigarettes Amount Used/How Often: 1 PPD FOR 17 YEARS Length of Time of Smoking/Using Tobacco: 17 YEARS Have You Smoked in the Last Year: No When Did the Patient Quit Smoking/Using Tobacco: 1987 - Immunization History Most Recent Influenza Vaccination: 2018 Most Recent Tetanus Shot: WITHIN 10 YEARS Most Recent Pneumonia Vaccination: NONE Review of Systems Constitutional: Negative Skin: Negative Eyes: Negative ENT: Nasal Discharge Respiratory: Cough Cardiovascular: Negative Gastrointestinal: Negative Genitourinary: Negative Motor: Negative Neurovascular: Negative Musculoskeletal: Negative Neurological: Negative Psychological: Negative Is Patient Immunocompromised?: No All Other Systems Reviewed And Are Negative: Yes Physical Exam Triage Information Reviewed: Yes Appearance: Well-Appearing, No Pain Distress, Well-Nourished Vital Signs: Initial Vital Signs Temp 97.2 F 04/26/18 07:35 Pulse 51 04/26/18 07:35 Resp 16 04/26/18 07:35 BP 173/79 04/26/18 07:35 Pulse Ox 96 04/26/18 07:35 Eyes: Positive: Conjunctiva Clear ENT: Positive: Hearing grossly normal, Uvula midline. Negative: Nasal congestion, Nasal drainage, Tonsillar swelling, Tonsillar exudate, Trismus, Muffled voice, Hoarse voice, Dental tenderness, Sinus tenderness Neck: Positive: Supple, Nontender, No Lymphadenopathy Respiratory: Positive: Lungs clear, Normal breath sounds, No respiratory distress, No accessory muscle use Cardiovascular: Positive: RRR, No Murmur Musculoskeletal: Positive: ROM Intact, No Edema Neurological: Positive: Alert Psychological Exam: Normal Skin Exam: Normal UC Diagnostic Evaluation - Laboratory O2 Sat by Pulse Oximetry: 96 - normal/not hypoxic - Radiology Xray Interpretation: No Acute Changes Radiology Interpretation Completed By: Radiologist Respiratory Course/Dx - Differential Dx/Diagnosis Provider Diagnoses: acute bronchitis Discharge - Sign-Out/Discharge Documenting (check all that apply): Discharge/Admit/Transfer - Discharge Plan Condition: Stable Disposition: HOME Prescriptions: DOXYcycline CAP(*) [DOXYcycline 100MG CAP(*)] 100 mg PO BID #14 cap Patient Education Materials: Acute Bronchitis (ED) Referrals: Kael Bonilla MD [Primary Care Provider] - 4 Days (if not better) Additional Instructions: plain robitussin or mucinex for cough recheck for new or worsening symptoms - Billing Disposition and Condition Condition: STABLE Disposition: HOME
--- NOTE | 2018-04-26 08:48 | RAD ---
HISTORY: Cough COMPARISONS: February 08, 2018 VIEWS: 4: Frontal dual-energy and lateral views of the chest. FINDINGS: CARDIOMEDIASTINAL SILHOUETTE: The cardiomediastinal silhouette is normal. SALVADOR: The salvador are normal. PLEURA: The costophrenic angles are sharp. No pleural abnormalities are noted. LUNG PARENCHYMA: There is hyperinflation with flattening of the diaphragm and expansion of the AP diameter of the chest. ABDOMEN: The upper abdomen is clear. There is no subphrenic gas. BONES AND SOFT TISSUES: No bone or soft tissue abnormalities are noted. OTHER: None. IMPRESSION: HYPERINFLATION, CONSISTENT WITH COPD. NO ACTIVE CARDIOPULMONARY DISEASE.
== END 2018-04-26 09:11 | disposition home or self-care (01) ==
LOC: UCEAST 07:21
DX: J20.9 Acute bronchitis, unspecified (principal); E78.5 Hyperlipidemia, unspecified; I10 Essential (primary) hypertension; Z88.0 Allergy status to penicillin; Z87.891 Personal history of nicotine dependence
CPT/HCPCS: 71046; 99212; G0463